=== PATIENT | male | born 1940 | race African-American/Black ===

== ENCOUNTER 2017-01-19 13:44 | Inpatient (IN) | payer MEDICARE, OTHER ==
[~2017-01-19] VITALS: Ht 185.4 cm; Wt 97.5 kg
[~2017-01-19 13:44] MED LIST: BRIMONIDINE; DICY20TA11 PO; LEVO50TA PO; LOSA25TA12 PO; METO25TA6 PO; NIFE30TA94; OMEP20CA4 PO; PRED5DRO7 OP; TIMOLOL
[2017-01-19 15:43] LABS: BASOPHILS % 0.6 % (0.0-2.0); EOSINOPHILS % 4.3 % (0.0-5.0); HEMOGLOBIN. 14.2 g/dL (14.0-18.0); LYMPHOCYTES % 34.6 % (20.0-50.0); MEAN CORPUSCULAR HEMOGLOBIN 29.4 pg (28.0-32.0); MEAN CORPUSCULAR VOLUME 86.7 fL (80.0-94.0); MONOCYTES % 9.3 % (2.0-8.0); NEUTROPHILS % 51.2 % (40.0-76.0); PLATELET 97 x1000/uL (130-400); RED BLOOD CELL COUNT 4.84 mill/uL (4.7-6.1); RED CELL DISTRIBUTION WIDTH 12.9 % (11.6-14.6)
[2017-01-19 15:48] LABS: INR 1.1; PROTHROMBIN TIME 11.1 sec (9.4-11.6)
[2017-01-19 15:56] LABS: CARBON DIOXIDE 30 mEq/L (21-32); CHLORIDE 100 mEq/L (98-107)
[2017-01-19] MEDS ORDERED: IBUPROFEN 600MG TABLET PO PRN (16:15)
[2017-01-19] MEDS ORDERED: ACETAMINOPHEN 325MG TABLET PO PRN (16:15)
[2017-01-19 21:00] VITALS: BP 111/70
[2017-01-19] MEDS ORDERED: CYCL5TAB PO (21:04)
[2017-01-19] MEDS ORDERED: AMLO1TAB PO (21:04)
[2017-01-19 21:30] VITALS: BP 111/70
[2017-01-20] VITALS: BP 126/64
[2017-01-20] MEDS ORDERED: CLONIDINE 0.1MG TABLET PO PRN
[2017-01-20] MEDS ORDERED: IPRATROPIUM/ALBUTEROL 0.5-3(2.5)MG/3ML NEB INH PRN
[2017-01-20] MEDS ORDERED: ACETAMINOPHEN 325MG TABLET PO PRN
[2017-01-20] MEDS ORDERED: MAGNESIUM/ALUMINUM HYDROXIDE/SIMETHICONE 30ML UDC PO PRN
[2017-01-20] MEDS ORDERED: DOCUSATE SODIUM 100MG CAPSULE PO PRN
[2017-01-20] MEDS ORDERED: HYDROCODONE/ACETAMINOPHEN 5/325MG TABLET PO PRN
[2017-01-20] MEDS ORDERED: ONDANSETRON HCL 4MG/2ML VIAL IV PRN
[2017-01-20] MEDS ORDERED: HEPARIN BOLUS PRN aPTT 37-44 IV (00:15)
[2017-01-20] MEDS ORDERED: HEPARIN BOLUS PRN aPTT <36 IV (00:15)
[2017-01-20] MEDS ORDERED: HEPARIN 25,000 UNITS PREMIX 500 ML IV SCH (00:15)
[2017-01-20 00:38] LABS: CLARITY URINE CLEAR (CLEAR); COLOR URINE YELLOW (YELLOW); GLUCOSE URINE NEGATIVE (NEGATIVE); KETONES URINE NEGATIVE (NEGATIVE); LEUKOCYTE ESTERASE URINE NEGATIVE (NEGATIVE); NITRITE URINE NEGATIVE (NEGATIVE); OCCULT BLOOD URINE 1+ (NEGATIVE); PH URINE 6.5 (4.5-8.0); PROTEIN URINE NEGATIVE (NEGATIVE); SPECIFIC GRAVITY URINE 1.015 (1.005-1.030)
[2017-01-20 00:44] LABS: CHLORIDE 101 mEq/L (98-107)
[2017-01-20 00:49] LABS: CARBON DIOXIDE 34 mEq/L (21-32)
[2017-01-20] MEDS ORDERED: HEPARIN 80 UNITS/KG BOLUS IV NR (02:15)
[2017-01-20 04:00] VITALS: BP 128/71
[2017-01-20] MEDS: LEVOTHYROXINE SODIUM 50MCG TABLET PO SCH (06:50)
[2017-01-20 08:00] VITALS: BP 121/69
[2017-01-20 08:05] LABS: BASOPHILS % 0.3 % (0.0-2.0); HEMATOCRIT. 37.9 % (42.0-52.0); HEMOGLOBIN. 12.9 g/dL (14.0-18.0); MEAN CORPUSCULAR HEMOGLOBIN 29.4 pg (28.0-32.0); MEAN CORPUSCULAR VOLUME 86.4 fL (80.0-94.0); MEAN PLATELET VOLUME 8.6 fl (7.4-10.4); MONOCYTES % 8.8 % (2.0-8.0); NEUTROPHILS % 42.9 % (40.0-76.0); PLATELET 103 x1000/uL (130-400); RED BLOOD CELL COUNT 4.39 mill/uL (4.7-6.1); RED CELL DISTRIBUTION WIDTH 12.9 % (11.6-14.6)
[2017-01-20] MEDS ORDERED: AMLODIPINE 10MG TABLET PO SCH (09:00)
[2017-01-20] MEDS ORDERED: LOSARTAN POTASSIUM 100 MG TABLET PO SCH (09:00)
[2017-01-20] MEDS ORDERED: HCTZ PO SCH (09:00)
[2017-01-20] MEDS ORDERED: [UNRECOGNIZED DRUG - OTHER] PO SCH (09:00)
[2017-01-20] MEDS ORDERED: AMLODIPINE PO SCH (09:00)
[2017-01-20] MEDS ORDERED: VALSARTAN PO SCH (09:00)
[2017-01-20] MEDS ORDERED: HYDROCHLOROTHIAZIDE 12.5MG CAPSULE PO SCH (09:00)
[2017-01-20] MEDS ORDERED: TRAMADOL 50MG TABLET PO PRN (09:15)
[2017-01-20] MEDS: ENOXAPARIN 100MG/ML SYR SUBCUT SCH ×2 (11:50→21:34)
[2017-01-20 12:00] VITALS: BP 115/60
[2017-01-20] MEDS: VALSARTAN XX SCH (13:06)
[2017-01-20] MEDS: HCTZ XX SCH (13:06)
[2017-01-20] MEDS: AMLODIPINE XX SCH (13:06)
[2017-01-20] MEDS ORDERED: IOHEXOL-350 100 ML BOTTLE ONE (14:43)
[2017-01-20] MEDS ORDERED: SODIUM CHLORIDE 0.9% 10ML VIAL ONE (14:43)
[2017-01-20 16:00] VITALS: BP 131/62
[2017-01-20 20:00] VITALS: BP 120/66
[2017-01-21] VITALS: BP 156/72
[2017-01-21] MEDS ORDERED: HEPARIN 80 UNITS/KG BOLUS IV NR (01:00)
[2017-01-21 04:00] VITALS: BP 148/74
[2017-01-21] MEDS: LEVOTHYROXINE SODIUM 50MCG TABLET PO SCH (07:07)
[2017-01-21 07:37] LABS: BASOPHILS % 0.4 % (0.0-2.0); EOSINOPHILS % 4.2 % (0.0-5.0); HEMATOCRIT. 37.4 % (42.0-52.0); HEMOGLOBIN. 12.8 g/dL (14.0-18.0); LYMPHOCYTES % 44.3 % (20.0-50.0); MEAN CORPUSCULAR HEMOGLOBIN 29.3 pg (28.0-32.0); MEAN CORPUSCULAR VOLUME 85.5 fL (80.0-94.0); MEAN PLATELET VOLUME 8.8 fl (7.4-10.4); MONOCYTES % 9.6 % (2.0-8.0); NEUTROPHILS % 41.5 % (40.0-76.0); PLATELET 109 x1000/uL (130-400); RED BLOOD CELL COUNT 4.38 mill/uL (4.7-6.1)
[2017-01-21 08:00] VITALS: BP 110/69
[2017-01-21 08:22] LABS: CARBON DIOXIDE 28 mEq/L (21-32); CHLORIDE 101 mEq/L (98-107)
[2017-01-21 08:30] LABS: TROPONIN I < 0.02 ng/mL (0.00-0.04)
[2017-01-21] MEDS: HCTZ XX SCH (09:00)
[2017-01-21] MEDS: AMLODIPINE XX SCH (09:00)
[2017-01-21] MEDS: VALSARTAN XX SCH (09:00)
[2017-01-21] MEDS: ENOXAPARIN 100MG/ML SYR SUBCUT SCH (09:24)
[2017-01-21 11:27] VITALS: BP 124/84
== END 2017-01-21 12:25 | disposition home or self-care (01) | DRG 301 ==
LOC: ER 14:43 → 6EST 15:32 → ENRESERV 19:58
PROVIDERS: ADMIT Internal Medicine; ATTEND Internal Medicine
DX: I82.412 Acute embolism and thrombosis of left femoral vein (principal); I82.432 Acute embolism and thrombosis of left popliteal vein; I11.9 Hypertensive heart disease without heart failure; D69.6 Thrombocytopenia, unspecified; E03.9 Hypothyroidism, unspecified; H26.9 Unspecified cataract; N20.0 Calculus of kidney; K58.9 Irritable bowel syndrome, unspecified; I25.10 Atherosclerotic heart disease of native coronary artery without angina pectoris; E78.00 Pure hypercholesterolemia, unspecified; H40.9 Unspecified glaucoma; D64.9 Anemia, unspecified; E78.5 Hyperlipidemia, unspecified; G89.29 Other chronic pain; R31.9 Hematuria, unspecified; M54.9 Dorsalgia, unspecified; K21.9 Gastro-esophageal reflux disease without esophagitis; Z79.899 Other long term (current) drug therapy; Z80.9 Family history of malignant neoplasm, unspecified; Z83.3 Family history of diabetes mellitus; Z87.442 Personal history of urinary calculi; Z87.891 Personal history of nicotine dependence; Z90.49 Acquired absence of other specified parts of digestive tract; Z90.89 Acquired absence of other organs; Z98.42 Cataract extraction status, left eye; Z98.41 Cataract extraction status, right eye
CPT/HCPCS: 36415; 71275; 80048; 80053; 80061; 81001; 83735; 84443; 84484; 85025; 85610; 85730; 87086; 93005; 93970; 99285; A4216; J1644; J1650; J2405; J7040; J7050; Q9967

== ENCOUNTER 2017-08-13 09:14 | Emergency (ER) | payer MEDICARE, OTHER ==
[~2017-08-13] VITALS: Ht 185.4 cm; Wt 96.0 kg
[~2017-08-13 09:14] MED LIST changes: +AMLO1TAB PO; +CYCL5TAB PO
[2017-08-13] MEDS ORDERED: ONDANSETRON HCL 4MG/2ML VIAL IV STA (09:51)
[2017-08-13] MEDS ORDERED: VISCOUS LIDOCAINE 2% 15 ML UDC PO STA (09:51)
[2017-08-13] MEDS ORDERED: MAGNESIUM/ALUMINUM HYDROXIDE/SIMETHICONE 30ML UDC PO STA (09:51)
[2017-08-13] MEDS ORDERED: SODIUM CHLORIDE 0.9% 1,000 ML IV ONE (09:51)
[2017-08-13] MEDS ORDERED: DICYCLOMINE 10 MG/5 ML ORAL SYR PO STA (09:51)
[2017-08-13 10:09] LABS: BASOPHILS % 0.4 % (0.0-2.0); EOSINOPHILS % 1.1 % (0.0-5.0); HEMATOCRIT. 38.9 % (42.0-52.0); HEMOGLOBIN. 13.3 g/dL (14.0-18.0); LYMPHOCYTES % 26.3 % (20.0-50.0); MEAN CORPUSCULAR HEMOGLOBIN 30.7 pg (28.0-32.0); MEAN CORPUSCULAR VOLUME 89.4 fL (80.0-94.0); MONOCYTES % 6.3 % (2.0-8.0); NEUTROPHILS % 65.9 % (40.0-76.0); PLATELET 119 x1000/uL (130-400); RED BLOOD CELL COUNT 4.35 mill/uL (4.7-6.1); RED CELL DISTRIBUTION WIDTH 13.3 % (11.6-14.6)
[2017-08-13 10:14] LABS: CHLORIDE 101 mEq/L (98-107)
[2017-08-13 10:15] LABS: INR 1.1; PROTHROMBIN TIME 11.5 sec (9.4-11.6)
[2017-08-13 11:45] LABS: CLARITY URINE CLEAR (CLEAR); COLOR URINE YELLOW (YELLOW); KETONES URINE NEGATIVE (NEGATIVE); LEUKOCYTE ESTERASE URINE NEGATIVE (NEGATIVE); NITRITE URINE NEGATIVE (NEGATIVE); OCCULT BLOOD URINE 1+ (NEGATIVE); PH URINE 6.5 (4.5-8.0); PROTEIN URINE NEGATIVE (NEGATIVE); SPECIFIC GRAVITY URINE 1.006 (1.005-1.030); UROBILINOGEN URINE 0.2 E.U./dL (0.2-1.0)
[2017-08-13 12:26] VITALS: BP 118/69
== END 2017-08-13 12:28 | disposition home or self-care (01) ==
LOC: ER 10:46
DX: R10.9 Unspecified abdominal pain (principal); R11.0 Nausea; I10 Essential (primary) hypertension; H40.9 Unspecified glaucoma; E78.00 Pure hypercholesterolemia, unspecified; E03.9 Hypothyroidism, unspecified; Z87.442 Personal history of urinary calculi
CPT/HCPCS: 36415; 74176; 80053; 81003; 83690; 85025; 85610; 96361; 96374; 99285; J2405; J7030

== ENCOUNTER 2018-07-04 02:09 | Inpatient (IN) | payer MEDICARE, OTHER ==
[~2018-07-04] VITALS: Ht 185.4 cm; Wt 93.0 kg
[~2018-07-04 02:09] MED LIST changes: +AMLO-359 PO; -AMLO1TAB PO
[2018-07-04] MEDS ORDERED: SODIUM CHLORIDE 0.9% 1,000 ML IV ONE (03:38)
[2018-07-04] MEDS ORDERED: ASPIRIN 81MG TABLET PO ONE (03:45)
[2018-07-04 04:09] LABS: BASOPHILS % 0.3 % (0.0-2.0); EOSINOPHILS % 0.8 % (0.0-5.0); HEMATOCRIT. 38.2 % (42.0-52.0); HEMOGLOBIN. 12.7 g/dL (14.0-18.0); LYMPHOCYTES % 21.8 % (20.0-50.0); MEAN CORPUSCULAR VOLUME 90.4 fL (80.0-94.0); MONOCYTES % 12.5 % (2.0-8.0); NEUTROPHILS % 64.6 % (40.0-76.0); PLATELET 94 x1000/uL (130-400); RED BLOOD CELL COUNT 4.23 mill/uL (4.7-6.1); RED CELL DISTRIBUTION WIDTH 13.2 % (11.6-14.6)
[2018-07-04 04:10] LABS: CHLORIDE 99 mEq/L (98-107)
[2018-07-04 05:04] LABS: INR 1.2; PARTIAL THROMBOPLASTIN TIME 22.9 sec (23.4-31.0); PROTHROMBIN TIME 11.6 sec (9.1-11.1)
[2018-07-04] MEDS ORDERED: ENOXAPARIN 100MG/ML SYR SUBCUT NR (06:48)
[2018-07-04] MEDS ORDERED: TRAMADOL 50MG TABLET PO PRN (10:00)
[2018-07-04] MEDS ORDERED: CLONIDINE 0.1MG TABLET PO PRN (10:00)
[2018-07-04] MEDS ORDERED: DOCUSATE SODIUM 100MG CAPSULE PO PRN (10:00)
[2018-07-04] MEDS ORDERED: MORPHINE SULFATE 4 MG/ML CPJ (NOT FOR IM USE) IV PRN (10:00)
[2018-07-04] MEDS ORDERED: ZOLPIDEM TARTRATE 5MG TABLET PO PRN (10:00)
[2018-07-04] MEDS ORDERED: IPRATROPIUM/ALBUTEROL 0.5-3(2.5)MG/3ML NEB INH PRN (10:00)
[2018-07-04] MEDS ORDERED: ONDANSETRON HCL 4MG/2ML INJ IV PRN (10:00)
[2018-07-04] MEDS ORDERED: LORAZEPAM 0.5MG TABLET PO PRN (10:00)
[2018-07-04] MEDS ORDERED: MAGNESIUM/ALUMINUM HYDROXIDE/SIMETHICONE 30ML UDC PO PRN (10:00)
[2018-07-04] MEDS ORDERED: NITROGLYCERIN 0.4MG TABLET SL SL PRN (10:00)
[2018-07-04] MEDS ORDERED: ACETAMINOPHEN 325MG TABLET PO PRN (10:00)
[2018-07-04] MEDS ORDERED: GUAIFENESIN 200MG/10ML SUGAR FREE UDC PO PRN (10:00)
[2018-07-04] MEDS ORDERED: LEVOTHYROXINE SODIUM 50MCG TABLET PO NR (10:45)
[2018-07-04 11:23] LABS: T4 FREE 0.96 ng/dL (0.76-1.46)
[2018-07-04] MEDS: GUAIFENESIN/DM 600MG/30MG ER TAB 12HR PO SCH (11:30)
[2018-07-04] MEDS ORDERED: CEFTRIAXONE 1,000 MG in DEXTROSE 5% WATER 50 ML IV SCH (11:30)
[2018-07-04] MEDS: SUCRALFATE 1 G/10 ML UDC PO SCH ×2 (11:30→17:00)
[2018-07-04] MEDS ORDERED: AZITHROMYCIN 500 MG in DEXT 5% WATER 250 ML IV SCH (12:00)
[2018-07-04 17:59] LABS: CREATINE KINASE MB FRACTION 2.9 ng/mL (0.5-3.6)
[2018-07-04 18:10] LABS: CREATINE KINASE 1091 IU/L (39-308)
[2018-07-04] MEDS ORDERED: FAMOTIDINE 20MG TABLET PO SCH (22:00)
[2018-07-04 23:06] LABS: CREATINE KINASE 984 IU/L (39-308)
[2018-07-04 23:07] LABS: CREATINE KINASE MB FRACTION 2.8 ng/mL (0.5-3.6)
[2018-07-05 05:16] LABS: BASOPHILS % 0.6 % (0.0-2.0); EOSINOPHILS % 1.8 % (0.0-5.0); HEMATOCRIT. 36.5 % (42.0-52.0); HEMOGLOBIN. 12.3 g/dL (14.0-18.0); LYMPHOCYTES % 39.2 % (20.0-50.0); MEAN CORPUSCULAR HEMOGLOBIN 30.4 pg (28.0-32.0); MEAN PLATELET VOLUME 8.8 fl (7.4-10.4); MONOCYTES % 14.3 % (2.0-8.0); NEUTROPHILS % 44.1 % (40.0-76.0); PLATELET 117 x1000/uL (130-400); RED BLOOD CELL COUNT 4.05 mill/uL (4.7-6.1); RED CELL DISTRIBUTION WIDTH 13.1 % (11.6-14.6)
[2018-07-05 05:18] LABS: CHLORIDE 101 mEq/L (98-107)
[2018-07-05] MEDS: LEVOTHYROXINE SODIUM 50MCG TABLET PO SCH (09:30)
[2018-07-05] MEDS ORDERED: ASPIRIN 325MG EC TABLET PO SCH (09:30)
[2018-07-05 10:00] VITALS: BP 132/57
[2018-07-05] MEDS ORDERED: ENOXAPARIN 40MG/0.4ML SYR SUBCUT SCH (10:00)
[2018-07-05] MEDS: ASCORBIC ACID 500 MG TABLET PO SCH ×2 (10:09→21:38)
[2018-07-05] MEDS: GUAIFENESIN/DM 600MG/30MG ER TAB 12HR PO SCH ×2 (10:09→21:38)
[2018-07-05 12:22] VITALS: BP 132/57
[2018-07-05] MEDS: SUCRALFATE 1 G/10 ML UDC PO SCH ×3 (12:24→21:42)
[2018-07-05] MEDS: ENOXAPARIN 100MG/ML SYR SUBCUT SCH ×2 (12:24→21:38)
[2018-07-05] MEDS: FAMOTIDINE 20MG TABLET PO SCH (12:25)
[2018-07-05] MEDS ORDERED: ASPIRIN 81MG EC TABLET PO SCH (14:00)
[2018-07-05] MEDS ORDERED: AZITHROMYCIN 500 MG in DEXT 5% WATER 250 ML IV SCH (15:00)
[2018-07-05 16:00] VITALS: BP 124/57
[2018-07-05] MEDS: CEFTRIAXONE 1,000 MG in DEXTROSE 5% WATER 50 ML IV SCH (18:18)
[2018-07-05] MEDS: AZITHROMYCIN 500 MG in DEXT 5% WATER 250 ML IV SCH (19:31)
[2018-07-06] VITALS: BP 120/74
[2018-07-06 04:00] VITALS: BP 119/68
[2018-07-06 06:22] LABS: CHLORIDE 101 mEq/L (98-107)
[2018-07-06 06:26] LABS: BASOPHILS % 0.4 % (0.0-2.0); EOSINOPHILS % 3.3 % (0.0-5.0); HEMATOCRIT. 37.2 % (42.0-52.0); HEMOGLOBIN. 12.4 g/dL (14.0-18.0); LYMPHOCYTES % 47.9 % (20.0-50.0); MEAN CORPUSCULAR VOLUME 89.6 fL (80.0-94.0); MONOCYTES % 12.4 % (2.0-8.0); PLATELET 117 x1000/uL (130-400); RED BLOOD CELL COUNT 4.15 mill/uL (4.7-6.1); RED CELL DISTRIBUTION WIDTH 13.3 % (11.6-14.6)
[2018-07-06] MEDS: SUCRALFATE 1 G/10 ML UDC PO SCH ×4 (06:29→21:00)
[2018-07-06] MEDS: LEVOTHYROXINE SODIUM 50MCG TABLET PO SCH (06:29)
[2018-07-06] MEDS: ASCORBIC ACID 500 MG TABLET PO SCH ×2 (08:54→21:30)
[2018-07-06] MEDS: FAMOTIDINE 20MG TABLET PO SCH (08:54)
[2018-07-06] MEDS: GUAIFENESIN/DM 600MG/30MG ER TAB 12HR PO SCH ×2 (08:55→21:30)
[2018-07-06] MEDS: ASPIRIN 81MG EC TABLET PO SCH (08:55)
[2018-07-06] MEDS: ENOXAPARIN 100MG/ML SYR SUBCUT SCH ×2 (08:56→21:30)
[2018-07-06] MEDS: CEFTRIAXONE 1,000 MG in DEXTROSE 5% WATER 50 ML IV SCH (14:27)
[2018-07-06 15:40] VITALS: BP_SYST 107; BP_SYST 113; BP_SYST 121; BP_DIAS 52; BP_DIAS 59
[2018-07-06] MEDS: AZITHROMYCIN 500 MG in DEXT 5% WATER 250 ML IV SCH (17:48)
[2018-07-06 20:00] VITALS: BP 115/61
[2018-07-07] VITALS: BP 126/68
[2018-07-07 04:00] VITALS: BP 117/73
[2018-07-07] MEDS: LEVOTHYROXINE SODIUM 50MCG TABLET PO SCH (06:31)
[2018-07-07] MEDS: SUCRALFATE 1 G/10 ML UDC PO SCH ×2 (06:32→12:20)
[2018-07-07 06:57] LABS: BASOPHILS % 0.4 % (0.0-2.0); EOSINOPHILS % 2.7 % (0.0-5.0); HEMATOCRIT. 36.3 % (42.0-52.0); LYMPHOCYTES % 49.6 % (20.0-50.0); MEAN CORPUSCULAR HEMOGLOBIN 29.8 pg (28.0-32.0); MEAN PLATELET VOLUME 8.6 fl (7.4-10.4); MONOCYTES % 12.6 % (2.0-8.0); NEUTROPHILS % 34.7 % (40.0-76.0); PLATELET 117 x1000/uL (130-400); RED BLOOD CELL COUNT 4.04 mill/uL (4.7-6.1); RED CELL DISTRIBUTION WIDTH 13.1 % (11.6-14.6)
[2018-07-07 08:00] VITALS: BP 109/59
[2018-07-07] MEDS: FAMOTIDINE 20MG TABLET PO SCH (08:54)
[2018-07-07] MEDS: ASCORBIC ACID 500 MG TABLET PO SCH (08:54)
[2018-07-07] MEDS: GUAIFENESIN/DM 600MG/30MG ER TAB 12HR PO SCH (08:54)
[2018-07-07] MEDS: ASPIRIN 81MG EC TABLET PO SCH (08:54)
[2018-07-07] MEDS: ENOXAPARIN 100MG/ML SYR SUBCUT SCH (08:55)
[2018-07-07] MEDS ORDERED: AZITHROMYCIN 500 MG TABLET PO SCH (09:00)
[2018-07-07] MEDS: CEFTRIAXONE 1,000 MG in DEXTROSE 5% WATER 50 ML IV SCH (11:00)
[2018-07-07 11:57] VITALS: BP 109/59
[2018-07-07 12:00] VITALS: BP 115/55
== END 2018-07-07 14:58 | disposition home health service (06) | DRG 193 ==
LOC: ER 02:09 → 5WST 04:05 → EDBEDREQ 04:31 → EDBEDREQTM 04:31 → SUPCPDRO 09:56 → ENRESERV 07-05 07:23 → 6WST 07-05 20:50
PROVIDERS: ADMIT Internal Medicine; ATTEND Internal Medicine
DX: J18.9 Pneumonia, unspecified organism (principal); J96.00 Acute respiratory failure, unspecified whether with hypoxia or hypercapnia; N17.0 Acute kidney failure with tubular necrosis; E87.1 Hypo-osmolality and hyponatremia; M62.82 Rhabdomyolysis; I95.1 Orthostatic hypotension; D69.6 Thrombocytopenia, unspecified; E03.9 Hypothyroidism, unspecified; I10 Essential (primary) hypertension; I25.10 Atherosclerotic heart disease of native coronary artery without angina pectoris; K58.9 Irritable bowel syndrome, unspecified; H40.9 Unspecified glaucoma; J10.1 Influenza due to other identified influenza virus with other respiratory manifestations; Z53.29 Procedure and treatment not carried out because of patient's decision for other reasons; Z87.891 Personal history of nicotine dependence; Z90.49 Acquired absence of other specified parts of digestive tract; Z79.01 Long term (current) use of anticoagulants; Z79.899 Other long term (current) drug therapy; D63.8 Anemia in other chronic diseases classified elsewhere
CPT/HCPCS: 36415; 71045; 71250; 74176; 80048; 80061; 82550; 82553; 82607; 82746; 82962; 83036; 83605; 83735; 83880; 84439; 84443; 84484; 87804; 93005; 93306; 93880; 93970; 96365; 96366; 96368; 96372; 97162; 97165; 99291; J0456; J0696; J1650; J7030; J7060

== ENCOUNTER 2019-10-12 11:16 | Emergency (ER) | payer MEDICARE, OTHER ==
[~2019-10-12] VITALS: Ht 185.4 cm; Wt 96.0 kg
[~2019-10-12 11:16] MED LIST changes: -LOSA25TA12 PO; +LOSA25TA26 PO
[2019-10-12 13:55] VITALS: BP 144/86
== END 2019-10-12 13:56 | disposition home or self-care (01) ==
LOC: ER 11:16
DX: H60.92 Unspecified otitis externa, left ear (principal); E05.90 Thyrotoxicosis, unspecified without thyrotoxic crisis or storm; D64.9 Anemia, unspecified; Z98.890 Other specified postprocedural states
CPT/HCPCS: 99283